=== PATIENT | female | born 1985 | race Two or more races ===

== ENCOUNTER 2017-01-01 10:07 | Outpatient (CLI) | payer MEDICAID ==
[~2017-01-01] VITALS: Ht 149.9 cm; Wt 78.6 kg
[2017-01-01 10:15] VITALS: BP 108/56
== END 2017-01-01 10:45 | disposition home or self-care (01) ==
LOC: LDOP 10:07
PROVIDERS: ATTEND Obstetrics & Gynecology
DX: Z34.83 Encounter for supervision of other normal pregnancy, third trimester (principal); Z86.59 Personal history of other mental and behavioral disorders; Z3A.36 36 weeks gestation of pregnancy
CPT/HCPCS: 59025; 99201; G0463

== ENCOUNTER 2017-01-10 17:19 | Inpatient (IN) | payer MEDICAID ==
[~2017-01-10] VITALS: Ht 147.3 cm; Wt 79.1 kg
[2017-01-10] MEDS ORDERED: PREN1TAB60 PO (17:34)
[2017-01-10 17:36] VITALS: BP 119/79
[2017-01-10] MEDS ORDERED: LIDOCAINE 1%, 20ML ONE (18:15)
[2017-01-10] MEDS ORDERED: NEWBORN KIT ONE (18:15)
[2017-01-10] MEDS ORDERED: MISOPROSTOL 200 MCG TABLET ONE (18:15)
[2017-01-10] MEDS ORDERED: OXYTOCIN 30U/ 0.9% NaCL 500ML 500 ML ONE (18:15)
[2017-01-10] MEDS: D5%-LACTATED RINGERS 1,000 ML IV SCH (18:16)
[2017-01-10] MEDS ORDERED: OXYTOCIN 30U/ 0.9% NaCL 500ML 500 ML IV ONE (18:16)
[2017-01-10] MEDS: LACTATED RINGERS 1,000 ML IV SCH ×2 (18:20→22:22)
[2017-01-10] MEDS ORDERED: FENTANYL PF 100 MCG/2ML IVPush PRN (18:30)
[2017-01-10] MEDS ORDERED: ONDANSETRON 2MG/ML, 2ML IVPush PRN (18:30)
[2017-01-10 18:43] LABS: HEMATOCRIT 38.4 % (34.6-47.8); HEMOGLOBIN 12.8 g/dL (11.7-16.4)
[2017-01-10] MEDS ORDERED: OXYTOCIN 30U/ 0.9% NaCL 500ML 500 ML IV PRN (18:47)
[2017-01-10] MEDS ORDERED: FENTANYL/BUPIV./NS/PF 250 ML EPIDCONT ONE (19:08)
[2017-01-10 20:05] VITALS: BP 126/64
[2017-01-11] MEDS: OXYTOCIN 30U/ 0.9% NaCL 500ML 500 ML IV SCH ×3 (00:43→20:43)
[2017-01-11] MEDS ORDERED: ONDANSETRON 2MG/ML, 2ML ONE (00:55)
[2017-01-11] MEDS ORDERED: CALCIUM CARBONATE 500 MG TAB.CHEW PO PRN (01:00)
[2017-01-11] MEDS ORDERED: DIPH,PERTUSS(ACELL),TET VAC/PF NC IM-VACC PRN (01:00)
[2017-01-11] MEDS ORDERED: DOCUSATE 100 MG CAPSULE PO PRN (01:00)
[2017-01-11] MEDS ORDERED: RHOGAM FROM BLOOD BANK 1 NOTE EA IM/IV ONE (01:00)
[2017-01-11] MEDS ORDERED: OXYcodone/APAP 5/325MG TABLET PO PRN ×2 (01:00)
[2017-01-11] MEDS ORDERED: MAGNESIUM HYDROXIDE 8%, 30ML UDC PO PRN (01:00)
[2017-01-11] MEDS ORDERED: MEASLES,MUMPS&RUBELLA VACC/PF 0.5 ML SQ PRN (01:00)
[2017-01-11] MEDS ORDERED: ACETAMINOPHEN 325 MG TABLET PO PRN ×2 (01:00)
[2017-01-11] MEDS ORDERED: ONDANSETRON 2MG/ML, 2ML IV PRN (01:00)
[2017-01-11] MEDS ORDERED: MISOPROSTOL 200 MCG TABLET PR PRN (01:00)
[2017-01-11] MEDS: D5%-LACTATED RINGERS 1,000 ML IV SCH (02:16)
[2017-01-11 04:35] VITALS: BP 106/63
[2017-01-11] MEDS ORDERED: FENTANYL/BUPIV./NS/PF 250 ML EPIDCONT SCH (06:56)
[2017-01-11] MEDS: LACTATED RINGERS 1,000 ML IV SCH ×2 (06:56→14:56)
[2017-01-11] MEDS ORDERED: ONDANSETRON 2MG/ML, 2ML IVPush PRN (07:00)
[2017-01-11] MEDS ORDERED: EPHEDRINE 50 MG/ML, 1ML IVPush PRN (07:00)
[2017-01-11] MEDS ORDERED: LACTATED RINGERS 1,000 ML IVBOLUS PRN (07:00)
[2017-01-11] MEDS ORDERED: NALOXONE 0.4 MG/ML, 1ML IVPush PRN (07:00)
[2017-01-11 07:23] VITALS: BP 99/64
[2017-01-11] MEDS: PRENATAL VIT/IRON/FA 1 EACH TABLET PO SCH (09:54)
[2017-01-11] MEDS: IBUPROFEN 600 MG TABLET PO PRN ×2 (09:54→16:41)
[2017-01-11 11:48] LABS: HEMOGLOBIN 11.2 g/dL (11.7-16.4)
[2017-01-11 20:30] VITALS: BP 109/72
[2017-01-12] MEDS: IBUPROFEN 600 MG TABLET PO PRN (06:11)
[2017-01-12 08:00] VITALS: BP 112/76
[2017-01-12] MEDS ORDERED: IBUP-1222 PO (08:18)
[2017-01-12] MEDS: PRENATAL VIT/IRON/FA 1 EACH TABLET PO SCH (09:00)
== END 2017-01-12 13:25 | disposition home or self-care (01) | DRG 774 ==
LOC: LDOP 17:19 → LDIP 18:16 → 2NW 01-11 04:20
PROVIDERS: ADMIT Obstetrics & Gynecology; ATTEND Obstetrics & Gynecology
PROC: 10907ZC Drainage of Amniotic Fluid, Therapeutic from Products of Conception, Via Natural or Artificial Opening (ICD-10-PCS; principal; 2017-01-10)
PROC: 10E0XZZ Delivery of Products of Conception, External Approach (ICD-10-PCS; 2017-01-10)
PROC: 3E0R3BZ Introduction of Anesthetic Agent into Spinal Canal, Percutaneous Approach (ICD-10-PCS; 2017-01-10)
PROC: 00HU33Z Insertion of Infusion Device into Spinal Canal, Percutaneous Approach (ICD-10-PCS; 2017-01-10)
PROC: 10H07YZ Insertion of Other Device into Products of Conception, Via Natural or Artificial Opening (ICD-10-PCS; 2017-01-10)
DX: O99.42 Diseases of the circulatory system complicating childbirth (principal); Q21.1 Atrial septal defect; Z37.0 Single live birth; Z3A.38 38 weeks gestation of pregnancy
CPT/HCPCS: 36415; 85025; 86850; 86900; J2405; J2590; J3010; J7120